=== PATIENT | female | born 1995 | race Hispanic/Latino ===

== ENCOUNTER 2021-04-03 07:47 | Outpatient (CLI) | payer OTHER | END 2021-04-03 07:48 | disposition home or self-care (01) | LOC: ULT 07:47 | PROVIDERS: ATTEND Family Medicine | DX: R10.84 Generalized abdominal pain (principal) | CPT/HCPCS: 76705 ==

== ENCOUNTER 2022-05-02 15:30 | Inpatient (IN) | payer OTHER ==
[2022-05-02] MEDS ORDERED: Ondansetron PF 4 MG/2 ML Vial ONE (15:37)
[2022-05-02] MEDS ORDERED: Morphine 4 MG/ML VIAL ONE (15:37)
[2022-05-02] MEDS ORDERED: PROPOFOL 20 ML ONE (16:21)
[2022-05-02] MEDS ORDERED: Ketamine 50 MG/ML (10ML VIAL) ONE (16:21)
[2022-05-02 17:02] LABS: #Eosinphils 0.1 thou/uL (0.0-0.7); #Lymphocytes 2.6 thou/uL (1.20-3.40); #Monocytes 0.4 thou/uL (0.11-0.59); #Neutrophils 4.1 thou/uL (1.40-6.50); %Basophils 0.6 % (0.0-1.0); %Eosinophils 1.4 % (0.0-10.0); %Lymphocytes 35.1 % (21.0-51.0); %Neutrophils 56.9 % (42.0-75.0); Hemoglobin 12.5 g/dL (12.0-16.0); Mean Corpuscular HGB CONC 34.7 g/dL (32.0-36.0); Mean Corpuscular Hemoglobin 29.8 pg (27.0-31.0); Platelet Count 294 10x3/uL (130-400); RBC Distribution Width 13.5 % (11.5-14.5); Red Blood Cell (RBC) Count 4.21 mill/uL (4.20-5.40); White Blood Cell (WBC) Count 7.3 10x3/uL (4.8-10.8)
[2022-05-02 17:14] LABS: BHCG - Serum Negative (NEGATIVE); Pregs Control Background? CLEAR/WHITE (CLR/WHITE); Pregs Control Bar Appear? YES (CONTROL BAR)
[2022-05-02 17:23] LABS: ALT (SGPT) 25 U/L (8-55); AST (SGOT) 20 U/L (5-34); Albumin 4.5 g/dL (3.5-5.0); Alkaline Phosphatase 73 U/L (40-110); Anion Gap 16 mmol/L (10-20); BUN (Urea Nitrogen) 14 mg/dL (7.0-18.7); Bilirubin, Total 0.2 mg/dL (0.2-1.2); Calc. Creatinine Clearance 0 mL/min (70-130); Calcium 10.1 mg/dL (7.8-10.44); Carbon Dioxide 19 mmol/L (22-29); Chloride 107 mmol/L (98-107); Estimated GFR 100; Globulin 3.4 g/dL (2.4-3.5); Glucose 94 mg/dL (70-105); Potassium 3.6 mmol/L (3.5-5.1); Protein, Total 7.9 g/dL (6.0-8.3); Sodium 138 mmol/L (136-145)
[2022-05-02] MEDS ORDERED: Ipratropium/Albuterol 3 ML NEB NEB PRN ×2 (17:24→17:28)
[2022-05-02] MEDS ORDERED: Morphine 2 MG/ML VIAL SLOW IVP PRN (17:24)
[2022-05-02] MEDS ORDERED: Ondansetron PF 4 MG/2 ML Vial IVP PRN (17:24)
[2022-05-02] MEDS ORDERED: hydrALAZINE 20 MG/ML VIAL SLOW IVP PRN (17:24)
[2022-05-02] MEDS ORDERED: Cyclobenzaprine 10 MG TAB PO PRN (17:28)
[2022-05-02] MEDS ORDERED: traMADol HCl 50 MG TAB PO PRN (17:28)
[2022-05-02] MEDS: Sodium Chloride 0.9% 1,000 ML IV SCH (19:57)
[2022-05-02] MEDS: traMADol HCl 50 MG TAB PO SCH ×2 (19:58→23:52)
[2022-05-02] MEDS: Acetaminophen 500 MG TAB PO SCH ×2 (19:58→23:51)
[2022-05-02 20:12] VITALS: BMI 40.3
[2022-05-02] MEDS: Famotidine 20 MG TAB PO SCH (20:19)
[2022-05-03] MEDS: Sodium Chloride 0.9% 1,000 ML IV SCH ×2 (03:25→11:33)
[2022-05-03 04:55] LABS: #Eosinphils 0.1 thou/uL (0.0-0.7); #Lymphocytes 1.8 thou/uL (1.20-3.40); #Monocytes 0.7 thou/uL (0.11-0.59); #Neutrophils 5.8 thou/uL (1.40-6.50); %Basophils 0.4 % (0.0-1.0); %Eosinophils 0.9 % (0.0-10.0); %Lymphocytes 21.3 % (21.0-51.0); %Monocytes 8.2 % (0.0-10.0); %Neutrophils 69.2 % (42.0-75.0); Hemoglobin 10.4 g/dL (12.0-16.0); Mean Corpuscular HGB CONC 32.6 g/dL (32.0-36.0); Mean Corpuscular Hemoglobin 28.1 pg (27.0-31.0); Mean Corpuscular Volume 86.3 fl (78.0-98.0); Mean Platelet Volume 7.4 fL (7.4-10.4); Platelet Count 252 10x3/uL (130-400); RBC Distribution Width 13.6 % (11.5-14.5); Red Blood Cell (RBC) Count 3.69 mill/uL (4.20-5.40); White Blood Cell (WBC) Count 8.4 10x3/uL (4.8-10.8)
[2022-05-03 04:59] LABS: Prothrombin Time 13.6 sec (12.0-14.7)
[2022-05-03 05:00] LABS: PTT 31.2 sec (22.9-36.1)
[2022-05-03] MEDS: Acetaminophen 500 MG TAB PO SCH ×4 (05:26→23:21)
[2022-05-03] MEDS: traMADol HCl 50 MG TAB PO SCH ×4 (05:27→23:20)
[2022-05-03 05:28] LABS: Anion Gap 11 mmol/L (10-20); BUN (Urea Nitrogen) 10 mg/dL (7.0-18.7); Calc. Creatinine Clearance 176 mL/min (70-130); Calcium 8.5 mg/dL (7.8-10.44); Carbon Dioxide 18 mmol/L (22-29); Chloride 110 mmol/L (98-107); Estimated GFR 114; Glucose 89 mg/dL (70-105); Potassium 3.7 mmol/L (3.5-5.1); Sodium 135 mmol/L (136-145)
[2022-05-03] MEDS: Polyethylene Glycol 3350 17 GM Packet PO SCH (08:11)
[2022-05-03] MEDS ORDERED: CEFAZOLIN 2 GM in Sodium Chloride 0.9% 100 ML IVPB SCH (08:15)
[2022-05-03] MEDS: Famotidine 20 MG TAB PO SCH ×2 (08:16→20:57)
[2022-05-03] MEDS ORDERED: Midazolam HCl 2 mg/2 ml Vial ONE (11:45)
[2022-05-03] MEDS ORDERED: FENTANYL 50 MCG/ML 1 ML VIAL ONE ×2 (11:45→13:17)
[2022-05-03] MEDS ORDERED: Bupivacaine PF 0.5% 30 ML VIAL ONE (11:46)
[2022-05-03] MEDS ORDERED: Dexamethasone 4 mg/ml Vial ONE (11:46)
[2022-05-03] MEDS ORDERED: CEFAZOLIN 2 GM VIAL ONE (12:48)
[2022-05-03] MEDS ORDERED: Sodium Chloride 0.9% 100 ML ONE (12:48)
[2022-05-03] MEDS ORDERED: Famotidine/PF 20 mg/2ml Vial ONE (13:18)
[2022-05-03] MEDS ORDERED: Metoclopramide HCl 10 MG/2 ML VIAL ONE (13:34)
[2022-05-03] MEDS ORDERED: Bupivacaine HCl 0.5%/Epinephrine 1:200,000/PF 30 ml Vial ONE (13:34)
[2022-05-03] MEDS ORDERED: Lidocaine 1% PF 5 ML VIAL ONE (13:34)
[2022-05-03] MEDS ORDERED: PROPOFOL 200 MG/20 ML VIAL ONE (13:34)
[2022-05-03] MEDS ORDERED: Ondansetron PF 4 MG/2 ML Vial ONE (13:34)
[2022-05-03] MEDS ORDERED: Dexamethasone 20 MG/5 ML VIAL ONE (13:34)
[2022-05-03] MEDS ORDERED: Ketorolac Tromethamine 30 MG/ML VIAL ONE (13:34)
[2022-05-03] MEDS ORDERED: Zolpidem Tartrate 5 MG TAB PO PRN (14:00)
[2022-05-03] MEDS ORDERED: Ropivacaine 0.2% 550 ML 550 ML NERVE BLCK SCH (14:00)
[2022-05-03] MEDS ORDERED: HYDROcodone/Acetaminophen 5/325 mg Tablet PO PRN ×2 (14:00)
[2022-05-03] MEDS ORDERED: Promethazine HCl 25 MG/ML VIAL IM PRN ×2 (14:00→14:40)
[2022-05-03] MEDS ORDERED: traMADol HCl 50 MG TAB PO PRN ×2 (14:00)
[2022-05-03] MEDS ORDERED: Ondansetron PF 4 MG/2 ML Vial IVP PRN (14:00)
[2022-05-03] MEDS ORDERED: Meperidine HCl/PF 25 MG/ML VIAL SLOW IVP PRN (14:40)
[2022-05-03] MEDS ORDERED: Ondansetron HCl/PF 4 MG/2 ML Vial IVP PRN (14:40)
[2022-05-03] MEDS ORDERED: Meperidine HCl/PF 25 MG/ML VIAL ONE (15:00)
[2022-05-03] MEDS: Ketorolac Tromethamine 30 MG/ML VIAL IVP SCH ×2 (17:16→23:20)
[2022-05-03] MEDS: CEFAZOLIN 2 GM in Sodium Chloride 0.9% 100 ML IVPB SCH (20:57)
[2022-05-04] MEDS: CEFAZOLIN 2 GM in Sodium Chloride 0.9% 100 ML IVPB SCH (05:10)
[2022-05-04] MEDS: traMADol HCl 50 MG TAB PO SCH ×2 (05:13→12:01)
[2022-05-04] MEDS: Acetaminophen 500 MG TAB PO SCH ×2 (05:13→12:01)
[2022-05-04] MEDS: Ketorolac Tromethamine 30 MG/ML VIAL IVP SCH ×2 (05:14→12:00)
[2022-05-04 05:39] LABS: #Lymphocytes 0.9 thou/uL (1.20-3.40); #Monocytes 0.5 thou/uL (0.11-0.59); #Neutrophils 8.3 thou/uL (1.40-6.50); %Eosinophils 0.1 % (0.0-10.0); %Lymphocytes 8.9 % (21.0-51.0); %Monocytes 5.4 % (0.0-10.0); %Neutrophils 85.5 % (42.0-75.0); Hemoglobin 10.6 g/dL (12.0-16.0); Mean Corpuscular HGB CONC 30.6 g/dL (32.0-36.0); Mean Corpuscular Hemoglobin 26.9 pg (27.0-31.0); Mean Corpuscular Volume 87.8 fl (78.0-98.0); Mean Platelet Volume 7.7 fL (7.4-10.4); Platelet Count 280 10x3/uL (130-400); RBC Distribution Width 13.5 % (11.5-14.5); Red Blood Cell (RBC) Count 3.93 mill/uL (4.20-5.40); White Blood Cell (WBC) Count 9.7 10x3/uL (4.8-10.8)
[2022-05-04] MEDS ORDERED: Sertraline 25 MG TAB PO SCH (09:00)
[2022-05-04] MEDS: Polyethylene Glycol 3350 17 GM Packet PO SCH (09:00)
[2022-05-04] MEDS ORDERED: busPIRone HCl 10 MG TAB PO SCH (09:00)
[2022-05-04] MEDS: Famotidine 20 MG TAB PO SCH (09:00)
[2022-05-04 12:20] VITALS: BP 121/80; TEMP 97.6
== END 2022-05-04 12:59 | disposition home or self-care (01) | DRG 493 ==
LOC: ERS 15:30 → SURG A 17:24
PROVIDERS: ADMIT Specialist; ATTEND Surgery
PROC: 0SSGXZZ Reposition Left Ankle Joint, External Approach (ICD-10-PCS; 2022-05-02)
PROC: 0QSH04Z Reposition Left Tibia with Internal Fixation Device, Open Approach (ICD-10-PCS; principal; 2022-05-03)
PROC: 0QSK04Z Reposition Left Fibula with Internal Fixation Device, Open Approach (ICD-10-PCS; 2022-05-03)
DX: S82.52XA Displaced fracture of medial malleolus of left tibia, initial encounter for closed fracture (principal); T81.33XA Disruption of traumatic injury wound repair, initial encounter; Z68.41 Body mass index [BMI] 40.0-44.9, adult; F32.A Depression, unspecified; F41.9 Anxiety disorder, unspecified; E66.9 Obesity, unspecified; S82.832A Other fracture of upper and lower end of left fibula, initial encounter for closed fracture; S82.852A Displaced trimalleolar fracture of left lower leg, initial encounter for closed fracture; Y93.51 Activity, roller skating (inline) and skateboarding; Y92.9 Unspecified place or not applicable
CPT/HCPCS: 27752; 36415; 71045; 80048; 80053; 84703; 85025; 85610; 85730; 86850; 86900; 86901; 96374; 99152; A4306; C1713; G0390; J1100; J1650; J1885; J2175; J2250; J2270; J2272; J2405; J2704; J2765; J2795; J3010; J3490; J7050; S0020; S0028

== ENCOUNTER 2022-10-07 10:33 | Day surgery (SDC) | payer OTHER ==
[2022-10-06 16:38] VITALS: BMI 37.8
[2022-10-07] MEDS ORDERED: EPINEPHrine 1 MG/ML AMP ONE (11:59)
[2022-10-07] MEDS ORDERED: Bupivacaine PF 0.5% 30 ML VIAL ONE (11:59)
[2022-10-07] MEDS ORDERED: Dexmedetomidine 200 MCG/2 ML VIAL ONE (12:04)
[2022-10-07] MEDS ORDERED: Sodium Chloride 0.9% 100 ML ONE (12:05)
[2022-10-07] MEDS ORDERED: CEFAZOLIN 2 GM VIAL ONE (12:05)
[2022-10-07] MEDS ORDERED: Ondansetron PF 4 MG/2 ML Vial ONE (12:25)
[2022-10-07] MEDS ORDERED: Ketorolac Tromethamine 30 MG/ML VIAL ONE (12:25)
[2022-10-07] MEDS ORDERED: PROPOFOL 200 MG/20 ML VIAL ONE (12:25)
[2022-10-07] MEDS ORDERED: Lidocaine 1% PF 5 ML VIAL ONE (12:25)
[2022-10-07] MEDS ORDERED: Dexamethasone 20 MG/5 ML VIAL ONE (12:25)
[2022-10-07] MEDS ORDERED: fentaNYL 50 mcg/mL 1 mL Vial ONE ×2 (12:27→13:34)
== END 2022-10-07 14:45 | disposition home or self-care (01) ==
LOC: SDC 10:33
PROVIDERS: ATTEND Orthopaedic Surgery
PROC: 0YPB0YZ Removal of Other Device from Left Lower Extremity, Open Approach (ICD-10-PCS; principal; 2022-10-07)
DX: T85.848A Pain due to other internal prosthetic devices, implants and grafts, initial encounter (principal); S82.52XD Displaced fracture of medial malleolus of left tibia, subsequent encounter for closed fracture with routine healing; D64.9 Anemia, unspecified; F41.8 Other specified anxiety disorders; R51.9 Headache, unspecified; Z79.899 Other long term (current) drug therapy; X58.XXXA Exposure to other specified factors, initial encounter
CPT/HCPCS: J0171; J1100; J1885; J2405; J2704; J3010; J3490; S0020